=== PATIENT | male | born 1980 | race Caucasian/White ===

== ENCOUNTER 2019-03-04 21:06 | Inpatient (IN) | payer OTHER ==
[~2019-03-04] VITALS: Ht 167.6 cm; Wt 93.2 kg
[~2019-03-04 21:06] MED LIST: TRAM50TA2 PO
--- NOTE | 2019-03-04 22:17 | ERD ---
ER Documentation Chief Complaint Chief Complaint CHEST TIGHTNESS X'S 1 DAY HPI 38-year-old male presenting with epigastric pain that started today after eating spicy food and drinking beer. He states that he was sweating and had pressure- like pain in his epigastrium that was radiating to the back. The pain has been constant for several hours. He has had associated nonbloody vomiting. No diarrhea or constipation. No fevers, dysuria, hematuria. He denies any upper chest pain or shortness of breath. He has never experienced this before. ROS All systems reviewed and are negative except as per history of present illness. Medications Home Meds Discontinued Reported Medications Tramadol HCl (Tramadol HCl) 50 Mg Tab, 50 MG PO PRN PRN for PAIN, TAB 04/07/14 Allergies Allergies: Coded Allergies: hydrocodone (Unverified Allergy, Mild, ITCHING, 03/04/19) PMhx/Soc History of Surgery: Yes (anterior cervical discectomy & fusion) Anesthesia Reaction: No Hx Neurological Disorder: No Hx Respiratory Disorders: No Hx Cardiac Disorders: Yes (HTN not on meds) Hx Psychiatric Problems: No Hx Miscellaneous Medical Probl: No Hx Alcohol Use: Yes (6 packs of beer every night, 3 bottles of beer 03/04/2019) Hx Substance Use: Yes (marijuana last used 03/03/2019, cocaine) Hx Tobacco Use: No Smoking Status: Never smoker FmHx Family History: No diabetes, No coronary disease Physical Exam Vitals Vital Signs Date Temp Pulse Resp B/P (MAP) Pulse Ox O2 O2 Flow FiO2 Time Delivery Rate 03/04/19 86 19 141/91 99 Room Air 23:30 (108) 03/04/19 89 15 127/103 99 Room Air 23:00 (111) 03/04/19 96 14 126/83 97 Room Air 22:30 (97) 03/04/19 95 14 147/101 98 Room Air 22:00 (116) 03/04/19 97.2 106 18 166/94 98 21:10 (118) Physical Exam Const: No acute distress Head: Atraumatic Eyes: Normal Conjunctiva ENT: Normal External Ears, Nose and Mouth. Neck: Full range of motion. No meningismus. Resp: Clear to auscultation bilaterally Cardio: Regular rate and rhythm, no murmurs Abd: Soft, non tender, non distended. Normal bowel sounds : Tip of foreskin with erythema and inflammation, white clumpy discharge noted. Unable to retract foreskin Skin: No petechiae or rashes Back: No midline or flank tenderness Ext: No cyanosis, or edema Neur: Awake and alert Psych: Normal Mood and Affect Result Diagram: 03/04/19221303/04/192213 Results 24 hrs Laboratory Tests Test 03/04/19 22:14 03/04/19 22:15 03/04/19 23:44 03/04/19 23:58 White Blood 17.7 10^3/ul Count Red Blood Count 5.24 10^6/ul Hemoglobin 16.2 g/dl Hematocrit 45.3 % Mean Corpuscular 86.5 fl Volume Mean Corpuscular 30.9 pg Hemoglobin Mean Corpuscular 35.8 g/dl Hemoglobin Ines nt Red Cell 12.5 % Distribution Width Platelet Count 226 10^3/UL Mean Platelet 10.6 fl Volume Immature 0.500 % Granulocytes % Neutrophils % 83.6 % Lymphocytes % 9.6 % Monocytes % 5.9 % Eosinophils % 0.1 % Basophils % 0.3 % Nucleated Red 0.0 /100WBC Blood Cells % Immature 0.090 10^3/ul Granulocytes # Neutrophils # 14.8 10^3/ul Lymphocytes # 1.7 10^3/ul Monocytes # 1.1 10^3/ul Eosinophils # 0.0 10^3/ul Basophils # 0.1 10^3/ul Nucleated Red 0.0 10^3/ul Blood Cells # Sodium Level 136 mmol/L Potassium Level 3.8 mmol/L Chloride Level 96 mmol/L Carbon Dioxide 19 mmol/L Level Anion Gap 21 Blood Urea 11 mg/dl Nitrogen Creatinine 0.98 mg/dl Est Glomerular > 60 mL/min Filtrat Rate mL/min Glucose Level 385 mg/dl Calcium Level 9.8 mg/dl Troponin I < 0.012 ng/ml Total Bilirubin 0.9 mg/dl Direct Bilirubin 0.00 mg/dl Indirect 0.9 mg/dl Bilirubin Aspartate Amino 34 IU/L Transf (AST/SGOT ) Alanine 43 IU/L Aminotransferase (ALT/SGPT) Alkaline 167 IU/L Phosphatase Total Protein 8.1 g/dl Albumin 5.2 g/dl Lipase 148 U/L Bedside Urine pH 5.0 (LAB) Bedside Urine 1+ Protein (LAB) Bedside Urine 0.50% Glucose (UA) Bedside Urine 4+ Ketones (LAB) Bedside Urine 1+ Blood Bedside Urine Negative Nitrite (LAB) Bedside Urine Negative Leukocyte Estera se (L Blood Gas Blood venous Specimen Source Arterial Blood 03/05/2019 12:15: Date Drawn 38 AM Arterial Blood VENOUS LINE Gas Puncture Site [place] Test N/A Venous Blood pH 7.316 Venous Blood 40.1 mmHG pCO2 (Temp Corrected) Venous Blood pO2 30.6 mmHG (Temp Corrected) Venous Blood 20.0 mmol/L HCO3 Venous Blood 61.6 mmHG Oxygen Saturation Venous Blood -5.7 mmol/L Base Excess Venous Blood 16.2 g/dl Total Hemoglobin Venous Blood 61.0 % Oxyhemoglobin Venous Blood 0.2 % Methemoglobin Carboxyhemoglobi 0.7 % n Blood Gas 37.0 C Temperature Blood Gas ROOM AIR Modality FiO2 21.0 % Blood Gas MR Notified Whom Blood Gas 03/05/2019 12:22: Notified Time 09 AM Test 03/05/19 00:30 Bedside Glucose 274 mg/dL Current Medications Medications Dose Sig/Anil Start Time Status Last (Trade) Ordered Route PRN Stop Time Admin Dose Reason Admin Sodium 1,000 ml @ Q1H STAT 03/04/19 DC 03/04/19 Chloride 1,000 mls/hr IV 22:18 22:25 03/04/19 23:17 Morphine 4 mg ONCE STAT 03/04/19 DC 03/04/19 Sulfate IV 22:18 22:25 (morphine) 03/04/19 22:20 Ondansetron 4 mg ONCE STAT 03/04/19 DC 03/04/19 HCl (Zofran IV 22:18 22:25 Inj) 03/04/19 22:20 Lactated 1,000 ml @ Q1H STAT 03/04/19 DC 03/04/19 Ringer's 1,000 mls/hr IV 23:25 23:40 03/05/19 00:24 Sodium 1,000 ml @ Q8H IV 03/05/19 UNV Chloride 125 mls/hr 00:37 IV Flush 3 ml PER 03/05/19 UNV (NS 3 ml) PROTOCOL IV 01:00 Ondansetron 4 mg Q6H PRN 03/05/19 UNV HCl (Zofran IV 01:00 Inj) NAUSEA/VOMITI NG 650 mg Q6H PRN 03/05/19 UNV Acetaminophen PO .PAIN 1-3 01:00 (Tylenol OR TEMP Tab) 1 tab Q6H PRN 03/05/19 UNV Acetaminophen PO .PAIN 4-6 01:00 / Hydrocodone Bitart ([place] (5/325)) Morphine 2 mg Q4H PRN 03/05/19 UNV Sulfate IV .PAIN 01:00 (morphine) 7-10 Docusate 100 mg Q12H PRN 03/05/19 UNV Sodium PO 01:00 (Colace) .CONSTIPATION Bisacodyl 5 mg DAILY PRN 03/05/19 UNV (Dulcolax) PO 01:00 .CONSTIPATION Insulin 10 units ONCE ONCE 03/05/19 UNV Glargine SC 01:00 (Lantus) 03/05/19 01:01 Discontinue ONCE ONCE 03/05/19 UNV Miscellaneous current oral XX 01:00 sulfonylur... 03/05/19 01:01 Information (* Miscellaneous Pharmacy Order) Diagnostic 1 ea 02 XX 03/05/19 UNV Test (Pha) 02:00 (Accu-Chek) ONCE ONCE 03/05/19 UNV Miscellaneous HYPOGLYCEMIA XX 01:00 PROTOCOL 03/05/19 01:01 Information w... (* Miscellaneous Pharmacy Order) Insulin NOVOLOG Q4 SC 03/05/19 UNV Aspart *MILD* 01:00 (Novolog ALGORI... Insulin Pen) Discontinue ONCE ONCE 03/05/19 UNV Miscellaneous all previ... XX 01:00 03/05/19 01:01 Information (* Miscellaneous Pharmacy Order) Al 60 ml ONCE ONCE 03/05/19 UNV Hydrox/Mg PO 01:00 Hydrox/Simeth 03/05/19 01:01 icone (Mag-Al Plus) Procedures/MDM EMERGENT LABS AND DIAGNOSTIC STUDIES: Lab Results above were reviewed and interpreted by me. CBC: Leukocytosis, no evidence of anemia CMP: Evidence of mild acidosis with low CO2. Hyperglycemic with evidence of possible DKA. No evidence of clinically significant electrolyte abnormality, renal failure, liver disease, or biliary obstruction Lipase: no evidence of pancreatitis Troponin within normal limits, not indicative of cardiac ischemia VBG shows evidence of mild acidosis with pH 7.31 Urine dip shows 4+ ketones, consistent with ketosis 12-lead EKG was interpreted by Yesi Loya MD: Normal Sinus Rhythm with ventricular rate of 100 beats per minute Normal axis Normal intervals No acute ST or T wave changes suggestive of acute ischemia or STEMI. Radiology Results as interpreted by Radiology below were reviewed by Magali Loya MD: Chest x-ray: no acute abnormalities Ultrasound gallbladder shows no acute abnormalities in the right upper quadrant Initial Nursing notes reviewed. Previous Medical Records requested via the Electronic Health Record. EMERGENCY DEPARTMENT COURSE / MEDICAL DECISION MAKING: Patient is presenting with upper abdominal pain with nausea and vomiting. Vitals are notable for tachycardia. Work-up did not show any evidence of cholecystitis or pancreatitis. There is no evidence of pneumonia. He does have leukocytosis but I have a low suspicion for serious intra-abdominal infection. Labs are consistent with new onset diabetes with mild ketoacidosis. Patient treated with 2 L of IV fluids. I feel he is stable for telemetry and will require admission for stabilization. I spoke with the admitting physician, Dr. Escamilla, who has accepted the patient for admission to telemetry. Of note, the patient later told me that he was having pain around his penis for quite some time. After examination, it seems the patient has balanoposthitis. This will also require treatment while in the hospital. Critical Care Time: 45 minutes Treatments/Evaluations: Close monitoring and treatment of unstable vital signs, cardiorespiratory, and neurologic status, while maintaining tight balance of fluid, respiratory, and cardiac interventions. This time includes discussing the case with the patient and the patients family. This time does not include all procedures stated elsewhere in this record. This time also includes reviewing old records, labs and radiological studies. This time includes examining and re- examining the patient. Additionally, this time also includes arranging care with admitting and consulting physicians. Departure Diagnosis: Primary Impression: Diabetes mellitus, new onset Additional Impressions: DKA (diabetic ketoacidoses) Diabetes mellitus type: due to underlying condition Diabetes mellitus complication detail: without coma Qualified Codes: E08.10 - Diabetes mellitus due to underlying condition with ketoacidosis without coma Leukocytosis Leukocytosis type: unspecified Qualified Codes: D72.829 - Elevated white blood cell count, unspecified Upper abdominal pain Balanoposthitis Condition: Serious MARY LOYA MD Mar 04, 2019 22:17
[2019-03-04] MEDS ORDERED: morphine 4 MG/ML VIAL IV STA (22:18)
[2019-03-04] MEDS ORDERED: SOD CHLORIDE 0.9% 1,000 ML IV STA (22:18)
[2019-03-04] MEDS ORDERED: ONDANSETRON 4 MG INJ IV STA (22:18)
[2019-03-04] MEDS ORDERED: LACTATED RINGER'S 1,000 ML IV STA (23:25)
[2019-03-05] MEDS ORDERED: AL HYDROX/MG HYDROX/SIMETH 30 ML CUP PO ONE (01:00)
[2019-03-05] MEDS ORDERED: HYDROCODONE/APAP (5/325) TAB PO PRN (01:00)
[2019-03-05] MEDS ORDERED: NACL 0.9% 3 ML SYG IV SCH (01:00)
[2019-03-05] MEDS ORDERED: BISACODYL (EC) 5 MG TAB PO PRN (01:00)
[2019-03-05] MEDS ORDERED: ONDANSETRON 4 MG INJ IV PRN (01:00)
[2019-03-05] MEDS ORDERED: morphine 2 MG INJ IV PRN (01:00)
[2019-03-05] MEDS ORDERED: ACETAMINOPHEN 325 MG TAB PO PRN (01:00)
[2019-03-05] MEDS ORDERED: INSULIN GLARGINE [LANTus] (100 UNITS/ML) SYG SC ONE (01:00)
[2019-03-05] MEDS ORDERED: GLUCOSE GEL 15 GRAM TUBE BUCCAL PRN (02:00)
[2019-03-05] MEDS ORDERED: GLUCOSE GEL 15 GRAM TUBE PO PRN ×2 (02:00)
[2019-03-05] MEDS ORDERED: DEXTROSE 50% 50 ML SYRINGE IV PRN ×2 (02:00)
[2019-03-05] MEDS ORDERED: GLUCAGON 1 MG INJ IM PRN (02:00)
[2019-03-05] MEDS: INSULIN ASPART [NOVOLOG] 3 ML PEN SC SCH ×4 (03:09→13:00)
[2019-03-05] MEDS ORDERED: ONDANSETRON 4 MG INJ IV STA (03:20)
[2019-03-05] MEDS ORDERED: LORAZEPAM 2 MG INJ IV ONE (03:30)
[2019-03-05] MEDS: FAMOTIDINE 20 MG INJ IV SCH ×3 (05:23→20:02)
[2019-03-05] MEDS ORDERED: AL HYDROX/MG HYDROX/SIMETH 30 ML CUP PO PRN (06:30)
[2019-03-05] MEDS: ACCU-CHEK XX SCH (07:33)
[2019-03-05] MEDS: SOD CHLORIDE 0.9% 1,000 ML IV SCH ×4 (07:34→21:22)
[2019-03-05] MEDS ORDERED: POTASSIUM CHLORIDE (SR) 20 MEQ TAB PO STA (07:44)
[2019-03-05] MEDS ORDERED: MULTIVITAMINS 10 ML, THIAMINE 100 MG, FOLIC ACID 1 MG in SOD CHLORIDE 0.9% 1,000 ML IVPB SCH (09:00)
--- NOTE | 2019-03-05 13:13 | CONS ---
Assessment/Plan Assessment/Plan Hospital Course (Demo Recall) Summary Assessment and Plan: Assessment: Epigastric pain/N/v- with questionable hematemesis -2/2 to DKA vs gastritis vs PUD vs Rosa-Rayo vs other Newly diagnosed DM DKA HTN- not treated Dyslipidemia- not treated hepatic steatosis Excessive alcohol use-crystal importance of cessation History of recent cocaine use Plan: NPO EGD today Endoscopy - risks/benefits/alternatives/indications of procedure and sedation/anesthesia discussed with patient who states understanding and gives informed consent to proceed. Monitor labs Continue H2 BID Continue medical management of underlying DKA Patient seen in collaboration with Dr. Sheehan CC: GEM SHEEHAN MD ; Consultation Date/Type/Reason Admit Date/Time Date of Consultation: Mar 05, 2019 Type of Consult GI Reason for Consultation Epigastric pain N/V- questionable hematemesis Date/Time of Note DATE: 03/05/19 TIME: 13:01 Hx of Present Illness This a 38-year-old male with known past medical history of hypertension, dyslipidemia both untreated, gastritis, history of upper GI bleed in 2000 who presented to the hospital after complaints of facial numbness associated with epigastric pain nausea and vomiting. Patient states yesterday after working he had ate spicy food with a beer, shortly after started to develop blurry vision with facial numbness subsequently nausea and dark emesis. Patient took a shower which did not help and proceeded to complain of persistent nausea and vomiting time noting what appeared to be possibly blood, He attempted to take omeprazole which did relieve some of his symptoms, he also took medication from whole [employer] which cause increased nausea and vomiting. He came to the ED for further evaluation. Here work-up was completed patient noted to have an elevated glucose. Urinalysis was positive for protein blood and ketones hemoglobin A1c was obtained with results to be 9.7 patient was not aware he was diabetic additionally patient with elevated CK. At time evaluation patient states he is feeling better no episodes of diarrhea, melena, hematochezia or constipation. Socially patient says he now only drinks 6 beers per day he notes he used to drink more than this, he smokes marijuana on a daily basis and history of recent cocaine use. Crystal plan to see with EGD today I reviewed risk/benefits of both procedure and sedation patient verbalized understanding is agreeable. Review of Systems: A 12 system, review was conducted and is negative except as noted in the HPI or here. Past Medical History Home Meds Discontinued Reported Medications Tramadol HCl (Tramadol HCl) 50 Mg Tab, 50 MG PO PRN PRN for PAIN, TAB 04/07/14 Medications Current Medications Sodium Chloride 1,000 ml @ 125 mls/hr Q8H IV Last administered on 03/05/19at 07:34; Admin Dose 125 MLS/HR; Start 03/05/19 at 00:37 IV Flush (NS 3 ml) 3 ml PER PROTOCOL IV ; Start 03/05/19 at 01:00 Ondansetron HCl (Zofran Inj) 4 mg Q6H PRN IV NAUSEA/VOMITING; Start 03/05/19 at 01:00 Acetaminophen (Tylenol Tab) 650 mg Q6H PRN PO .PAIN 1-3 OR TEMP; Start 03/05/19 at 01:00 Morphine Sulfate (morphine) 2 mg Q4H PRN IV .PAIN 7-10; Start 03/05/19 at 01:00 Docusate Sodium (Colace) 100 mg Q12H PRN PO .CONSTIPATION; Start 03/05/19 at 01:00 Bisacodyl (Dulcolax) 5 mg DAILY PRN PO .CONSTIPATION; Start 03/05/19 at 01:00 Diagnostic Test (Pha) (Accu-Chek) 1 ea 02 XX ; Start 03/05/19 at 02:00 Insulin Aspart (Novolog Insulin Pen) NOVOLOG *MILD* ALGORI... Q4 SC Last administered on 03/05/19at 10:21; Admin Dose 3 UNIT; Start 03/05/19 at 01:00 Miscellaneous Information 1 ea NOTE XX ; Start 03/05/19 at 02:00 Glucose (Glutose) 15 gm Q15M PRN PO DECREASED GLUCOSE; Start 03/05/19 at 02:00 Glucose (Glutose) 22.5 gm Q15M PRN PO DECREASED GLUCOSE; Start 03/05/19 at 02:00 Dextrose (D50w Syringe) 25 ml Q15M PRN IV DECREASED GLUCOSE; Start 03/05/19 at 02:00 Dextrose (D50w Syringe) 50 ml Q15M PRN IV DECREASED GLUCOSE; Start 03/05/19 at 02:00 Glucagon (Glucagen) 1 mg Q15M PRN IM DECREASED GLUCOSE; Start 03/05/19 at 02:00 Glucose (Glutose) 15 gm Q15M PRN BUCCAL DECREASED GLUCOSE; Start 03/05/19 at 02:00 Famotidine (Pepcid Iv) 20 mg BID IV Last administered on 03/05/19at 10:11; Admin Dose 20 MG; Start 03/05/19 at 04:30 Al Hydrox/Mg Hydrox/Simethicone (Mag-Al Plus) 30 ml Q4H PRN PO GASTROINTESTINAL UPSET; Start 03/05/19 at 06:30 Multivitamins 10 ml/Thiamine HCl 100 mg/Folic Acid 1 mg/Sodium Chloride 1,011.2 ml @ 125 mls/ hr DAILY@09 IVPB Last administered on 03/05/19at 10:11; Admin Dose 125 MLS/HR; Start 03/05/19 at 09:00; Stop 03/05/19 at 17:06 Allergies: Coded Allergies: hydrocodone (Unverified Allergy, Mild, ITCHING, 03/04/19) Social History Smoking Status: Never smoker Exam/Review of Systems Exam Vitals Vital Signs Date Temp Pulse Resp B/P (MAP) Pulse Ox O2 O2 Flow FiO2 Time Delivery Rate 03/05/19 98.2 80 16 141/85 98 Room Air 10:30 (103) 80 Exam PHYSICAL EXAMINATION: GENERAL: Alert & oriented x 3, in no acute distress SKIN: No lesions. HEAD: Normocephalic, atraumatic, no tenderness. EYES: Pupils equal reactive to light, non-icteric, no discharge. EARS/NOSE AND THROAT: Ears normal, nose normal. NECK: Supple, no masses. CHEST: Inspection within normal limits. CARDIOVASCULAR: Heart: Regular rate and rhythm RESPIRATORY: Lungs clear to auscultation GASTROINTESTINAL AND LIVER: Abdomen: Soft, epigastric tenderness, non-distended, no ascites, no guarding, no rebound tenderness, normoactive bowel sounds. Re ctal: Deferred. GENITOURINARY: Male genitalia within normal limits. EXTREMITIES: No cyanosis, clubbing or edema. Results Result Diagram: 03/05/19 0522 03/05/19 0929 Results 24hrs Laboratory Tests Test 03/04/19 22:14 03/04/19 22:15 03/04/19 23:44 03/04/19 23:58 White Blood Count 17.7 #H Red Blood Count 5.24 Hemoglobin 16.2 Hematocrit 45.3 Mean Corpuscular 86.5 Volume Mean Corpuscular 30.9 Hemoglobin Mean Corpuscular 35.8 Hemoglobin Concen t Red Cell 12.5 Distribution Width Platelet Count 226 Mean Platelet 10.6 #H Volume Immature 0.500 H Granulocytes % Neutrophils % 83.6 H Lymphocytes % 9.6 L Monocytes % 5.9 Eosinophils % 0.1 Basophils % 0.3 Nucleated Red 0.0 Blood Cells % Immature 0.090 H Granulocytes # Neutrophils # 14.8 H Lymphocytes # 1.7 Monocytes # 1.1 H Eosinophils # 0.0 Basophils # 0.1 Nucleated Red 0.0 Blood Cells # Sodium Level 136 Potassium Level 3.8 Chloride Level 96 L Carbon Dioxide 19 L Level Anion Gap 21 H Blood Urea 11 Nitrogen Creatinine 0.98 Est Glomerular > 60 Filtrat Rate mL/min Glucose Level 385 H Calcium Level 9.8 Troponin I < 0.012 Total Bilirubin 0.9 Direct Bilirubin 0.00 Indirect 0.9 Bilirubin Aspartate Amino 34 Transf (AST/SGOT) Alanine 43 Aminotransferase (ALT/SGPT) Alkaline 167 H Phosphatase Total Protein 8.1 Albumin 5.2 H Lipase 148 Ethyl Alcohol < 10.0 H Level Bedside Urine pH 5.0 (LAB) Bedside Urine 1+ H Protein (LAB) Bedside Urine 0.50% H Glucose (UA) Bedside Urine 4+ H Ketones (LAB) Bedside Urine 1+ H Blood Bedside Urine Negative Nitrite (LAB) Bedside Urine Negative Leukocyte Esteras e (L Blood Gas Blood venous Specimen Source Arterial Blood 03/05/2019 12:15: Date Drawn 38 AM Arterial Blood VENOUS LINE Gas Puncture Site [place] Test N/A Venous Blood pH 7.316 L Venous Blood pCO2 40.1 (Temp Corrected) Venous Blood pO2 30.6 H (Temp Corrected) Venous Blood HCO3 20.0 L Venous Blood 61.6 Oxygen Saturation Venous Blood Base -5.7 L Excess Venous Blood 16.2 Total Hemoglobin Venous Blood 61.0 Oxyhemoglobin Venous Blood 0.2 Methemoglobin Carboxyhemoglobin 0.7 Blood Gas 37.0 Temperature Blood Gas ROOM AIR Modality FiO2 21.0 Blood Gas MR Notified Whom Blood Gas 03/05/2019 12:22: Notified Time 09 AM Test 03/05/19 00:30 03/05/19 03:02 03/05/19 04:14 03/05/19 05:22 Bedside Glucose 274 H 232 H 248 H White Blood Count 13.4 #H Red Blood Count 4.69 L Hemoglobin 14.7 Hematocrit 40.4 L Mean Corpuscular 86.1 Volume Mean Corpuscular 31.3 Hemoglobin Mean Corpuscular 36.4 Hemoglobin Concen t Red Cell 12.7 Distribution Width Platelet Count 201 Mean Platelet 10.7 H Volume Immature 0.500 H Granulocytes % Neutrophils % 73.4 Lymphocytes % 17.8 Monocytes % 7.5 Eosinophils % 0.3 Basophils % 0.5 Nucleated Red 0.0 Blood Cells % Immature 0.070 H Granulocytes # Neutrophils # 9.8 H Lymphocytes # 2.4 Monocytes # 1.0 H Eosinophils # 0.0 Basophils # 0.1 Nucleated Red 0.0 Blood Cells # Test 03/05/19 05:23 03/05/19 05:25 03/05/19 09:29 03/05/19 10:18 Sodium Level 141 139 Potassium Level 3.3 L 3.7 Chloride Level 103 104 Carbon Dioxide 23 24 Level Anion Gap 15 H 11 Blood Urea 8 7 Nitrogen Creatinine 0.75 0.68 Est Glomerular > 60 > 60 Filtrat Rate mL/min Glucose Level 226 #H 216 Hemoglobin A1c 9.7 H Calcium Level 8.7 8.5 Magnesium Level 2.3 Total Bilirubin 1.0 Direct Bilirubin 0.00 Indirect 1.0 Bilirubin Aspartate Amino 33 Transf (AST/SGOT) Alanine 35 Aminotransferase (ALT/SGPT) Alkaline 121 Phosphatase Creatine Kinase 330 H 272 H Creatine Kinase 0.5 0.5 Index Creatinine Kinase 1.60 1.32 MB (Mass) Troponin I < 0.012 < 0.012 Total Protein 6.8 # Albumin 4.1 # Globulin 2.70 Albumin/Globulin 1.51 Ratio Triglycerides 659 H Level Cholesterol Level 281 H LDL Cholesterol, 115 Calculated HDL Cholesterol 34 Cholesterol/HDL 8.2 Ratio Thyroid 1.930 Stimulating Hormone (TSH) Bedside Glucose 234 H 223 H Test 03/05/19 12:15 Sodium Level 140 Potassium Level 3.7 Chloride Level 105 Carbon Dioxide 24 Level Anion Gap 11 Blood Urea 6 L Nitrogen Creatinine 0.69 Est Glomerular > 60 Filtrat Rate mL/min Glucose Level 186 Calcium Level 8.7 Medications Medication Current Medications Sodium Chloride 1,000 ml @ 125 mls/hr Q8H IV Last administered on 03/05/19at 07:34; Admin Dose 125 MLS/HR; Start 6/26/19 at 00:37 IV Flush (NS 3 ml) 3 ml PER PROTOCOL IV ; Start 03/05/19 at 01:00 Ondansetron HCl (Zofran Inj) 4 mg Q6H PRN IV NAUSEA/VOMITING; Start 03/05/19 at 01:00 Acetaminophen (Tylenol Tab) 650 mg Q6H PRN PO .PAIN 1-3 OR TEMP; Start 03/05/19 at 01:00 Morphine Sulfate (morphine) 2 mg Q4H PRN IV .PAIN 7-10; Start 03/05/19 at 01:00 Docusate Sodium (Colace) 100 mg Q12H PRN PO .CONSTIPATION; Start 03/05/19 at 01:00 Bisacodyl (Dulcolax) 5 mg DAILY PRN PO .CONSTIPATION; Start 03/05/19 at 01:00 Diagnostic Test (Pha) (Accu-Chek) 1 ea 02 XX ; Start 03/05/19 at 02:00 Insulin Aspart (Novolog Insulin Pen) NOVOLOG *MILD* ALGORI... Q4 SC Last administered on 03/05/19at 10:21; Admin Dose 3 UNIT; Start 03/05/19 at 01:00 Miscellaneous Information 1 ea NOTE XX ; Start 03/05/19 at 02:00 Glucose (Glutose) 15 gm Q15M PRN PO DECREASED GLUCOSE; Start 03/05/19 at 02:00 Glucose (Glutose) 22.5 gm Q15M PRN PO DECREASED GLUCOSE; Start 03/05/19 at 02:00 Dextrose (D50w Syringe) 25 ml Q15M PRN IV DECREASED GLUCOSE; Start 03/05/19 at 02:00 Dextrose (D50w Syringe) 50 ml Q15M PRN IV DECREASED GLUCOSE; Start 03/05/19 at 02:00 Glucagon (Glucagen) 1 mg Q15M PRN IM DECREASED GLUCOSE; Start 03/05/19 at 02:00 Glucose (Glutose) 15 gm Q15M PRN BUCCAL DECREASED GLUCOSE; Start 03/05/19 at 02:00 Famotidine (Pepcid Iv) 20 mg BID IV Last administered on 03/05/19at 10:11; Admin Dose 20 MG; Start 03/05/19 at 04:30 Al Hydrox/Mg Hydrox/Simethicone (Mag-Al Plus) 30 ml Q4H PRN PO GASTROINTESTINAL UPSET; Start 03/05/19 at 06:30 Multivitamins 10 ml/Thiamine HCl 100 mg/Folic Acid 1 mg/Sodium Chloride 1,011.2 ml @ 125 mls/ hr DAILY@09 IVPB Last administered on 03/05/19at 10:11; Admin Dose 125 MLS/HR; Start 03/05/19 at 09:00; Stop 03/05/19 at 17:06 SHARLA MARY Mar 05, 2019 13:13
--- NOTE | 2019-03-05 17:32 | PREAC ---
Date/Time of Note Date/Time of Note DATE: 03/05/19 TIME: 17:31 Anesthesia Eval and Record Evaluation Time Pre-Procedure Interview DATE: 03/05/19 TIME: 17:31 Age 38 Sex male NPO: 8 hrs Preoperative diagnosis epigastric pain bleeding Planned procedure egd Past Medical History Past Medical History: Includes Cardio: HTN, Dyslipidemia Endo: Diabetes Recreational drugs: Marijuana Surgery & Anesthesia Issues No known issue Meds Anticoagulation: No Beta Kwaku within 24 hr: No Reason Beta Kwaku not given: Pt. not on B-Kwaku Discontinued Reported Medications Tramadol HCl (Tramadol HCl) 50 Mg Tab, 50 MG PO PRN PRN for PAIN, TAB 04/07/14 Current Medications Sodium Chloride 1,000 ml @ 125 mls/hr Q8H IV Last administered on 03/05/19at 07:34; Admin Dose 125 MLS/HR; Start 03/05/19 at 00:37 IV Flush (NS 3 ml) 3 ml PER PROTOCOL IV ; Start 03/05/19 at 01:00 Ondansetron HCl (Zofran Inj) 4 mg Q6H PRN IV NAUSEA/VOMITING; Start 03/05/19 at 01:00 Acetaminophen (Tylenol Tab) 650 mg Q6H PRN PO .PAIN 1-3 OR TEMP; Start 03/05/19 at 01:00 Morphine Sulfate (morphine) 2 mg Q4H PRN IV .PAIN 7-10; Start 03/05/19 at 01:00 Docusate Sodium (Colace) 100 mg Q12H PRN PO .CONSTIPATION; Start 03/05/19 at 01:00 Bisacodyl (Dulcolax) 5 mg DAILY PRN PO .CONSTIPATION; Start 03/05/19 at 01:00 Diagnostic Test (Pha) (Accu-Chek) 1 ea 02 XX ; Start 03/05/19 at 02:00 Insulin Aspart (Novolog Insulin Pen) NOVOLOG *MILD* ALGORI... Q4 SC Last administered on 03/05/19at 10:21; Admin Dose 3 UNIT; Start 03/05/19 at 01:00 Miscellaneous Information 1 ea NOTE XX ; Start 03/05/19 at 02:00 Glucose (Glutose) 15 gm Q15M PRN PO DECREASED GLUCOSE; Start 03/05/19 at 02:00 Glucose (Glutose) 22.5 gm Q15M PRN PO DECREASED GLUCOSE; Start 03/05/19 at 02:00 Dextrose (D50w Syringe) 25 ml Q15M PRN IV DECREASED GLUCOSE; Start 03/05/19 at 02:00 Dextrose (D50w Syringe) 50 ml Q15M PRN IV DECREASED GLUCOSE; Start 03/05/19 at 02:00 Glucagon (Glucagen) 1 mg Q15M PRN IM DECREASED GLUCOSE; Start 03/05/19 at 02:00 Glucose (Glutose) 15 gm Q15M PRN BUCCAL DECREASED GLUCOSE; Start 03/05/19 at 02:00 Famotidine (Pepcid Iv) 20 mg BID IV Last administered on 03/05/19at 10:11; Admin Dose 20 MG; Start 03/05/19 at 04:30 Al Hydrox/Mg Hydrox/Simethicone (Mag-Al Plus) 30 ml Q4H PRN PO GASTROINTESTINAL UPSET; Start 03/05/19 at 06:30 Meds reviewed: Yes Allergies Coded Allergies: hydrocodone (Unverified Allergy, Mild, ITCHING, 03/04/19) Allergies Reviewed: Yes Labs/Studies Labs Reviewed: Reviewed by anesthesiologist Result Diagram: 03/05/19 0522 03/05/19 1215 Laboratory Tests 03/05/19 05:22 03/05/19 12:15 test: N/A Pre-procedure Exam Last vitals Vital Signs Date Temp Pulse Resp B/P (MAP) Pulse Ox O2 O2 Flow FiO2 Time Delivery Rate 03/05/19 98.3 81 16 135/96 98 Nasal 2.0 15:30 (109) Cannula 81 Airway: Adequate mouth opening, Adequate thyromental dist Mallampati: Mallampati III Teeth: Normal Lung: Normal Heart: Normal ASA Physical Status ASA physical status: 2 Emergency: None Pre-operative Attestations Prior to commencing anesthesia and surgery, the patient was re-evaluated, there was verification of: *The patient's identity *The results of appropriate recent lab work and preoperative vital signs *The above evaluation not changing prior to induction *Anesthetic plan, risk benefits, alternative and complications discussed with patient/family; questions answered; patient/family understands, accepts and wishes to proceed. SATHYA COONEY DO Mar 05, 2019 17:32
--- NOTE | 2019-03-05 18:00 | PAC ---
Date/Time of Note Date/Time of Note DATE: 03/05/19 TIME: 17:59 Post-Anesthesia Notes Post-Anesthesia Note Last documented vital signs Vital Signs Date Temp Pulse Resp B/P (MAP) Pulse Ox O2 O2 Flow FiO2 Time Delivery Rate 98 85 19 130/65 98 Nasal 2.0 0 Cannula 81 Activity: WNL Respiratory function: WNL Cardiovascular function: WNL Mental status: Baseline Pain reasonably controlled: Yes Hydration appropriate: Yes Nausea/Vomiting absent: Yes SATHYA COONEY DO Mar 05, 2019 18:00
[2019-03-05] MEDS: METOCLOPRAMIDE 10 MG INJ IV SCH ×2 (18:49→23:37)
[2019-03-05 19:56] VITALS: BP 137/89; PULSE 82; RESP 18
[2019-03-05] MEDS: PANTOPRAZOLE 40 MG INJ IV SCH (20:02)
[2019-03-05] MEDS: Insulin NOVOLOG SS MILD Algorithm (SS with meals and bedtime) SC SCH (20:03)
[2019-03-05] MEDS ORDERED: INSULIN ASPART [NOVOLOG] 3 ML PEN SC SCH (21:00)
[2019-03-05] MEDS: DOCUSATE SODIUM 100 MG CAP PO PRN (21:21)
[2019-03-05 21:40] VITALS: Ht 167.6 cm; Wt 93.2 kg
[2019-03-05 23:26] VITALS: BP 117/73; PULSE 65; RESP 18
[2019-03-06] MEDS: ACCU-CHEK XX SCH (01:09)
[2019-03-06 04:00] VITALS: BP 119/75; PULSE 73; RESP 18
[2019-03-06] MEDS: METOCLOPRAMIDE 10 MG INJ IV SCH ×4 (05:53→23:59)
[2019-03-06] MEDS: SOD CHLORIDE 0.9% 1,000 ML IV SCH (05:55)
[2019-03-06 07:43] VITALS: BP 137/78; PULSE 76; RESP 16
[2019-03-06] MEDS: FAMOTIDINE 20 MG INJ IV SCH (08:31)
[2019-03-06] MEDS: PANTOPRAZOLE 40 MG INJ IV SCH ×2 (08:33→20:09)
[2019-03-06] MEDS: Insulin NOVOLOG SS MILD Algorithm (SS with meals and bedtime) SC SCH ×4 (10:07→20:57)
--- NOTE | 2019-03-06 10:51 | PN ---
Date/Time of Note Date/Time of Note DATE: 03/06/19 TIME: 10:46 Assessment/Plan VTE Prophylaxis Risk score (from Nsg)>0 risk: 2 SCD applied (from Nsg): Yes Pharmacological prophylaxis: other (scds) Lines/Catheters IV Catheter Type (from Nrsg): Peripheral IV Assessment/Plan Hospital Course Summary Assessment and Plan: Assessment: Epigastric pain/N/v- with questionable hematemesis -2/2 to DKA vs gastritis vs PUD vs Rosa-Rayo vs other EGD 03/05/19 Severe ulcerative esophagitis. Small hiatal hernia. Moderate gastritis. Linear duodenal ulcerations with no stigmata. Otherwise normal EGD Newly diagnosed DM DKA HTN- not treated Dyslipidemia- not treated Hepatic steatosis Excessive alcohol use-discussed importance of cessation History of recent cocaine use Plan: PPI BID Await pathology Diet as tolerated Pt to f/u with GI after d/c- pt stable for out-pt management from GI point of view D/c planning per hospitalist Patient seen in collaboration with Dr. Sheehan Subjective: Course reviewed with nursing staff Patient interviewed and examined All labs, imaging and other results reviewed The patient states he feels much better today Tolerating diet well, no c/o n/v at this time Discussed results of EGD- patient verbalized understanding PHYSICAL EXAMINATION: GENERAL: Alert & oriented x 3, in no acute distress SKIN: No lesions. HEAD: Normocephalic, atraumatic, no tenderness. EYES: Pupils equal reactive to light, non-icteric, no discharge. EARS/NOSE AND THROAT: Ears normal, nose normal. NECK: Supple, no masses. CHEST: Inspection within normal limits. CARDIOVASCULAR: Heart: Regular rate and rhythm RESPIRATORY: Lungs clear to auscultation GASTROINTESTINAL AND LIVER: Abdomen: Soft, epigastric tenderness, non-distended, no ascites, no guarding, no rebound tenderness, normoactive bowel sounds. Rectal: Deferred. GENITOURINARY: Male genitalia within normal limits. EXTREMITIES: No cyanosis, clubbing or edema. Result Diagram: 03/06/19 0521 03/06/19 0521 Results 24hrs Laboratory Tests Test 03/05/19 12:15 03/05/19 16:36 03/05/19 18:34 03/05/19 18:48 Sodium Level 140 139 Potassium Level 3.7 3.7 Chloride Level 105 107 Carbon Dioxide Level 24 20 L Anion Gap 11 12 Blood Urea Nitrogen 6 L 5 L Creatinine 0.69 0.68 Est Glomerular > 60 > 60 Filtrat Rate mL/min Glucose Level 186 189 Calcium Level 8.7 8.4 Bedside Glucose 176 185 Test 03/05/19 19:46 03/05/19 22:00 03/06/19 05:21 03/06/19 08:28 Bedside Glucose 166 189 Urine Opiates Screen Negative Urine Barbiturates Negative Urine Amphetamines Negative Screen Urine Negative Benzodiazepines Screen Urine Cocaine Screen Positive Urine Cannabinoids Positive White Blood Count 8.8 # Red Blood Count 4.35 L Hemoglobin 13.7 L Hematocrit 39.6 L Mean Corpuscular 91.0 Volume Mean Corpuscular 31.5 Hemoglobin Mean Corpuscular 34.6 Hemoglobin Concent Red Cell 13.2 Distribution Width Platelet Count 189 Mean Platelet Volume 10.9 H Immature 0.500 H Granulocytes % Neutrophils % 71.3 Lymphocytes % 18.8 Monocytes % 8.2 Eosinophils % 0.6 Basophils % 0.6 Nucleated Red Blood 0.0 Cells % Immature 0.040 H Granulocytes # Neutrophils # 6.3 Lymphocytes # 1.7 Monocytes # 0.7 Eosinophils # 0.1 Basophils # 0.1 Nucleated Red Blood 0.0 Cells # Sodium Level 143 Potassium Level 3.7 Chloride Level 108 Carbon Dioxide Level 21 Anion Gap 14 H Blood Urea Nitrogen 6 L Creatinine 0.71 Est Glomerular > 60 Filtrat Rate mL/min Glucose Level 199 Calcium Level 8.8 Total Bilirubin 0.9 Direct Bilirubin 0.00 Indirect Bilirubin 0.9 Aspartate Amino 25 Transf (AST/SGOT) Alanine 36 Aminotransferase (AL T/SGPT) Alkaline Phosphatase 105 Total Protein 6.3 Albumin 3.6 Globulin 2.70 Albumin/Globulin 1.33 Ratio Test 03/06/19 09:57 Bedside Glucose 272 H Exam/Review of Systems Exam Vitals Vital Signs Date Temp Pulse Resp B/P (MAP) Pulse Ox O2 O2 Flow FiO2 Time Delivery Rate 03/06/19 98.7 76 16 137/78 95 07:43 (97) 03/06/19 Room Air 04:00 03/05/19 2.0 15:30 Intake and Output 03/05/19 03/05/19 03/06/19 1515:00 23:00 07:00 IntakeIntake Total 1000 ml 1800 ml BalanceBalance 1000 ml 1800 ml Results Results 24hrs Laboratory Tests Test 03/05/19 12:15 03/05/19 16:36 03/05/19 18:34 03/05/19 18:48 Sodium Level 140 139 Potassium Level 3.7 3.7 Chloride Level 105 107 Carbon Dioxide Level 24 20 L Anion Gap 11 12 Blood Urea Nitrogen 6 L 5 L Creatinine 0.69 0.68 Est Glomerular > 60 > 60 Filtrat Rate mL/min Glucose Level 186 189 Calcium Level 8.7 8.4 Bedside Glucose 176 185 Test 03/05/19 19:46 03/05/19 22:00 03/06/19 05:21 03/06/19 08:28 Bedside Glucose 166 189 Urine Opiates Screen Negative Urine Barbiturates Negative Urine Amphetamines Negative Screen Urine Negative Benzodiazepines Screen Urine Cocaine Screen Positive Urine Cannabinoids Positive White Blood Count 8.8 # Red Blood Count 4.35 L Hemoglobin 13.7 L Hematocrit 39.6 L Mean Corpuscular 91.0 Volume Mean Corpuscular 31.5 Hemoglobin Mean Corpuscular 34.6 Hemoglobin Concent Red Cell 13.2 Distribution Width Platelet Count 189 Mean Platelet Volume 10.9 H Immature 0.500 H Granulocytes % Neutrophils % 71.3 Lymphocytes % 18.8 Monocytes % 8.2 Eosinophils % 0.6 Basophils % 0.6 Nucleated Red Blood 0.0 Cells % Immature 0.040 H Granulocytes # Neutrophils # 6.3 Lymphocytes # 1.7 Monocytes # 0.7 Eosinophils # 0.1 Basophils # 0.1 Nucleated Red Blood 0.0 Cells # Sodium Level 143 Potassium Level 3.7 Chloride Level 108 Carbon Dioxide Level 21 Anion Gap 14 H Blood Urea Nitrogen 6 L Creatinine 0.71 Est Glomerular > 60 Filtrat Rate mL/min Glucose Level 199 Calcium Level 8.8 Total Bilirubin 0.9 Direct Bilirubin 0.00 Indirect Bilirubin 0.9 Aspartate Amino 25 Transf (AST/SGOT) Alanine 36 Aminotransferase (AL T/SGPT) Alkaline Phosphatase 105 Total Protein 6.3 Albumin 3.6 Globulin 2.70 Albumin/Globulin 1.33 Ratio Test 03/06/19 09:57 Bedside Glucose 272 H Medications Medication Current Medications IV Flush (NS 3 ml) 3 ml PER PROTOCOL IV ; Start 03/05/19 at 01:00 Ondansetron HCl (Zofran Inj) 4 mg Q6H PRN IV NAUSEA/VOMITING; Start 03/05/19 at 01:00 Acetaminophen (Tylenol Tab) 650 mg Q6H PRN PO .PAIN 1-3 OR TEMP; Start 03/05/19 at 01:00 Morphine Sulfate (morphine) 2 mg Q4H PRN IV .PAIN 7-10; Start 03/05/19 at 01:00 Docusate Sodium (Colace) 100 mg Q12H PRN PO .CONSTIPATION Last administered on 03/05/19at 21:21; Admin Dose 100 MG; Start 03/05/19 at 01:00 Bisacodyl (Dulcolax) 5 mg DAILY PRN PO .CONSTIPATION; Start 03/05/19 at 01:00 Miscellaneous Information 1 ea NOTE XX ; Start 03/05/19 at 02:00 Glucose (Glutose) 15 gm Q15M PRN PO DECREASED GLUCOSE; Start 03/05/19 at 02:00 Glucose (Glutose) 22.5 gm Q15M PRN PO DECREASED GLUCOSE; Start 03/05/19 at 02:00 Dextrose (D50w Syringe) 25 ml Q15M PRN IV DECREASED GLUCOSE; Start 03/05/19 at 02:00 Dextrose (D50w Syringe) 50 ml Q15M PRN IV DECREASED GLUCOSE; Start 03/05/19 at 02:00 Glucagon (Glucagen) 1 mg Q15M PRN IM DECREASED GLUCOSE; Start 03/05/19 at 02:00 Glucose (Glutose) 15 gm Q15M PRN BUCCAL DECREASED GLUCOSE; Start 03/05/19 at 02:00 Famotidine (Pepcid Iv) 20 mg BID IV Last administered on 03/06/19at 08:31; Admin Dose 20 MG; Start 03/05/19 at 04:30 Al Hydrox/Mg Hydrox/Simethicone (Mag-Al Plus) 30 ml Q4H PRN PO GASTROINTESTINAL UPSET; Start 03/05/19 at 06:30 Pantoprazole (Protonix Iv) 40 mg BID IV Last administered on 03/06/19at 08:33; Admin Dose 40 MG; Start 03/05/19 at 21:00 Metoclopramide HCl (Reglan) 10 mg Q6 IV Last administered on 03/06/19at 05:53; Admin Dose 10 MG; Start 03/05/19 at 18:00 Insulin Aspart (Novolog Insulin Pen) (Adult SC Insulin - Mild Algorithm)... AC MEALS AND BEDTIME SC Last administered on 03/06/19at 10:07; Admin Dose 4 UNIT; Start 03/05/19 at 21:00 Insulin Glargine (Lantus) 14 units DAILY@0800 SC ; Start 03/06/19 at 11:30 Insulin Aspart (Novolog Insulin Pen) 5 unit WITH MEALS SC ; Start 03/06/19 at 11:50 SHARLA MARY Mar 06, 2019 10:51
[2019-03-06 11:21] VITALS: BP 141/94; PULSE 72; RESP 16
[2019-03-06] MEDS: SUCRALFATE (100 MG/ML) 10ML CUP PO SCH ×3 (12:07→20:09)
[2019-03-06] MEDS: INSULIN GLARGINE [LANTus] (100 UNITS/ML) SYG SC SCH (12:22)
[2019-03-06] MEDS: INSULIN ASPART [NOVOLOG] 3 ML PEN SC SCH ×2 (12:22→17:30)
--- NOTE | 2019-03-06 15:49 | PN ---
Date/Time of Note Date/Time of Note DATE: 03/06/19 TIME: 15:47 Assessment/Plan VTE Prophylaxis Risk score (from Ns)>0 risk: 2 SCD applied (from Ns): Yes Pharmacological prophylaxis: heparin Lines/Catheters IV [facility] Type (from [facility]): Peripheral IV Assessment/Plan Hospital Course 38 yo male with new onste DMII, DKA, and dyspepsia Dyspepsia: - S/p EGD showing esophagitis and gastritis -> PPI - Etoh cessation counsled DMII: - DKA Is resolved - Basal/bolus insulin - Insulin teaching - will add metformin at discharge Dyslipidemia: - Statin DC home tomorrow Result Diagram: 03/06/1952003/06/19520 Results 24hrs Laboratory Tests Test 03/05/19 16:36 03/05/19 18:34 03/05/19 18:48 03/05/19 19:46 Bedside Glucose 176 185 166 Sodium Level 139 Potassium Level 3.7 Chloride Level 107 Carbon Dioxide Level 20 L Anion Gap 12 Blood Urea Nitrogen 5 L Creatinine 0.68 Est Glomerular > 60 Filtrat Rate mL/min Glucose Level 189 Calcium Level 8.4 Test 03/05/19 22:00 03/06/19 05:21 03/06/19 08:28 03/06/19 09:57 Urine Opiates Screen Negative Urine Barbiturates Negative Urine Amphetamines Negative Screen Urine Negative Benzodiazepines Screen Urine Cocaine Screen Positive Urine Cannabinoids Positive White Blood Count 8.8 # Red Blood Count 4.35 L Hemoglobin 13.7 L Hematocrit 39.6 L Mean Corpuscular 91.0 Volume Mean Corpuscular 31.5 Hemoglobin Mean Corpuscular 34.6 Hemoglobin Concent Red Cell 13.2 Distribution Width Platelet Count 189 Mean Platelet Volume 10.9 H Immature 0.500 H Granulocytes % Neutrophils % 71.3 Lymphocytes % 18.8 Monocytes % 8.2 Eosinophils % 0.6 Basophils % 0.6 Nucleated Red Blood 0.0 Cells % Immature 0.040 H Granulocytes # Neutrophils # 6.3 Lymphocytes # 1.7 Monocytes # 0.7 Eosinophils # 0.1 Basophils # 0.1 Nucleated Red Blood 0.0 Cells # Sodium Level 143 Potassium Level 3.7 Chloride Level 108 Carbon Dioxide Level 21 Anion Gap 14 H Blood Urea Nitrogen 6 L Creatinine 0.71 Est Glomerular > 60 Filtrat Rate mL/min Glucose Level 199 Calcium Level 8.8 Total Bilirubin 0.9 Direct Bilirubin 0.00 Indirect Bilirubin 0.9 Aspartate Amino 25 Transf (AST/SGOT) Alanine 36 Aminotransferase (AL T/SGPT) Alkaline Phosphatase 105 Total Protein 6.3 Albumin 3.6 Globulin 2.70 Albumin/Globulin 1.33 Ratio Bedside Glucose 189 272 H Test 03/06/19 12:06 Bedside Glucose 205 Subjective 24 Hr Interval Summary Free Text/Dictation Feels well Had very lenghty discussion about DMII, dietary modificaitons Exam/Review of Systems Exam Vitals Vital Signs Date Temp Pulse Resp B/P (MAP) Pulse Ox O2 O2 Flow FiO2 Time Delivery Rate 03/06/19 97.9 72 16 141/94 96 11:21 (110) 03/06/19 Room Air 04:00 03/05/19 2.0 15:30 Intake and Output 03/05/19 03/05/19 03/06/19 1515:00 23:00 07:00 IntakeIntake Total 1000 ml 1800 ml BalanceBalance 1000 ml 1800 ml Constitutional: alert, oriented, well developed Psych: no complaints, nl mood/affect Head: normocephalic, atraumatic Eyes: nl conjunctiva, EOMI, nl lids, nl sclera, PERRL ENMT: nl external ears & nose, nl lips & teeth, nl nasal mucosa & septum Neck: supple, non-tender Respiratory: clear to auscultation, normal air movement Cardiovascular: regular rate and rhythm, nl pulses Gastrointestinal: soft, nl liver, spleen, non-tender Musculoskeletal: nl extremities to inspection, nl gait and stance Extremities: normal pulses Neurological: MANAGER EVENT II-XII intact, nl mental status, nl speech, nl strength Skin: nl turgor; No rash or lesions Lymph: nl lymph nodes Results Results 24hrs Laboratory Tests Test 03/05/19 16:36 03/05/19 18:34 03/05/19 18:48 03/05/19 19:46 Bedside Glucose 176 185 166 Sodium Level 139 Potassium Level 3.7 Chloride Level 107 Carbon Dioxide Level 20 L Anion Gap 12 Blood Urea Nitrogen 5 L Creatinine 0.68 Est Glomerular > 60 Filtrat Rate mL/min Glucose Level 189 Calcium Level 8.4 Test 03/05/19 22:00 03/06/19 05:21 03/06/19 08:28 03/06/19 09:57 Urine Opiates Screen Negative Urine Barbiturates Negative Urine Amphetamines Negative Screen Urine Negative Benzodiazepines Screen Urine Cocaine Screen Positive Urine Cannabinoids Positive White Blood Count 8.8 # Red Blood Count 4.35 L Hemoglobin 13.7 L Hematocrit 39.6 L Mean Corpuscular 91.0 Volume Mean Corpuscular 31.5 Hemoglobin Mean Corpuscular 34.6 Hemoglobin Concent Red Cell 13.2 Distribution Width Platelet Count 189 Mean Platelet Volume 10.9 H Immature 0.500 H Granulocytes % Neutrophils % 71.3 Lymphocytes % 18.8 Monocytes % 8.2 Eosinophils % 0.6 Basophils % 0.6 Nucleated Red Blood 0.0 Cells % Immature 0.040 H Granulocytes # Neutrophils # 6.3 Lymphocytes # 1.7 Monocytes # 0.7 Eosinophils # 0.1 Basophils # 0.1 Nucleated Red Blood 0.0 Cells # Sodium Level 143 Potassium Level 3.7 Chloride Level 108 Carbon Dioxide Level 21 Anion Gap 14 H Blood Urea Nitrogen 6 L Creatinine 0.71 Est Glomerular > 60 Filtrat Rate mL/min Glucose Level 199 Calcium Level 8.8 Total Bilirubin 0.9 Direct Bilirubin 0.00 Indirect Bilirubin 0.9 Aspartate Amino 25 Transf (AST/SGOT) Alanine 36 Aminotransferase (AL T/SGPT) Alkaline Phosphatase 105 Total Protein 6.3 Albumin 3.6 Globulin 2.70 Albumin/Globulin 1.33 Ratio Bedside Glucose 189 272 H Test 03/06/19 12:06 Bedside Glucose 205 Medications Medication Current Medications IV Flush (NS 3 ml) 3 ml PER PROTOCOL IV ; Start 03/05/19 at 01:00 Ondansetron HCl (Zofran Inj) 4 mg Q6H PRN IV NAUSEA/VOMITING; Start 03/05/19 at 01:00 Acetaminophen (Tylenol Tab) 650 mg Q6H PRN PO .PAIN 1-3 OR TEMP; Start 03/05/19 at 01:00 Morphine Sulfate (morphine) 2 mg Q4H PRN IV .PAIN 7-10; Start 03/05/19 at 01:00 Docusate Sodium (Colace) 100 mg Q12H PRN PO .CONSTIPATION Last administered on 03/05/19at 21:21; Admin Dose 100 MG; Start 03/05/19 at 01:00 Bisacodyl (Dulcolax) 5 mg DAILY PRN PO .CONSTIPATION; Start 03/05/19 at 01:00 Miscellaneous Information 1 ea NOTE XX ; Start 03/05/19 at 02:00 Glucose (Glutose) 15 gm Q15M PRN PO DECREASED GLUCOSE; Start 03/05/19 at 02:00 Glucose (Glutose) 22.5 gm Q15M PRN PO DECREASED GLUCOSE; Start 03/05/19 at 02:00 Dextrose (D50w Syringe) 25 ml Q15M PRN IV DECREASED GLUCOSE; Start 03/05/19 at 02:00 Dextrose (D50w Syringe) 50 ml Q15M PRN IV DECREASED GLUCOSE; Start 03/05/19 at 02:00 Glucagon (Glucagen) 1 mg Q15M PRN IM DECREASED GLUCOSE; Start 03/05/19 at 02:00 Glucose (Glutose) 15 gm Q15M PRN BUCCAL DECREASED GLUCOSE; Start 03/05/19 at 02:00 Al Hydrox/Mg Hydrox/Simethicone (Mag-Al Plus) 30 ml Q4H PRN PO GASTROINTESTINAL UPSET; Start 03/05/19 at 06:30 Pantoprazole (Protonix Iv) 40 mg BID IV Last administered on 03/06/19at 08:33; Admin Dose 40 MG; Start 03/05/19 at 21:00 Metoclopramide HCl (Reglan) 10 mg Q6 IV Last administered on 03/06/19 05:53; Admin Dose 10 MG; Start 03/05/19 at 18:00 Insulin Aspart (Novolog Insulin Pen) (Adult SC Insulin - Mild Algorithm)... AC MEALS AND BEDTIME SC Last administered on 03/06/19 12:22; Admin Dose 2 UNIT; Start 03/05/19 at 21:00 Insulin Glargine (Lantus) 14 units DAILY@0800 SC Last administered on 03/06/19 12:22; Admin Dose 14 UNITS; Start 03/06/19 at 11:30 Insulin Aspart (Novolog Insulin Pen) 5 unit WITH MEALS SC Last administered on 03/06/19 12:22; Admin Dose 5 UNIT; Start 03/06/19 at 11:50 Sucralfate (Carafate Susp) 1 gm QID PO Last administered on 03/06/19 12:07; Admin Dose 1 GM; Start 03/06/19 at 13:00 BHAKTI TAM MD Mar 06, 2019 15:49
[2019-03-06 16:08] VITALS: BP 134/104; RESP 18
[2019-03-06 19:20] VITALS: BP 139/91; PULSE 81; RESP 18
[2019-03-06] MEDS: DOCUSATE SODIUM 100 MG CAP PO PRN (20:11)
[2019-03-06] MEDS ORDERED: PRAMOXINE/HC 10 GM RECT FOAM PR ONE (22:00)
[2019-03-06] MEDS ORDERED: PRAMOXINE 1% 15 GM RECT FOAM PR PRN (23:00)
[2019-03-07 02:36] VITALS: BP 115/73; PULSE 59; RESP 19
[2019-03-07] MEDS: METOCLOPRAMIDE 10 MG INJ IV SCH ×2 (06:27→12:34)
[2019-03-07] MEDS: PANTOPRAZOLE 40 MG INJ IV SCH (08:11)
[2019-03-07] MEDS: INSULIN GLARGINE [LANTus] (100 UNITS/ML) SYG SC SCH (08:12)
[2019-03-07] MEDS: Insulin NOVOLOG SS MILD Algorithm (SS with meals and bedtime) SC SCH ×2 (08:13→12:33)
[2019-03-07] MEDS: INSULIN ASPART [NOVOLOG] 3 ML PEN SC SCH ×2 (08:13→12:34)
[2019-03-07] MEDS: SUCRALFATE (100 MG/ML) 10ML CUP PO SCH ×2 (08:16→12:34)
[2019-03-07] MEDS: DOCUSATE SODIUM 100 MG CAP PO PRN (08:24)
--- NOTE | 2019-03-07 09:43 | PN ---
Date/Time of Note Date/Time of Note DATE: 03/07/19 TIME: 09:39 Assessment/Plan VTE Prophylaxis Risk score (from Nsg)>0 risk: 2 SCD applied (from Nsg): Yes Pharmacological prophylaxis: other (scds) Lines/Catheters IV Catheter Type (from Nrsg): Peripheral IV Assessment/Plan Hospital Course Summary Assessment and Plan: Assessment: Epigastric pain/N/v- with questionable hematemesis -2/2 to DKA vs gastritis vs PUD vs Rosa-Rayo vs other EGD 03/05/19 Severe ulcerative esophagitis. Small hiatal hernia. Moderate gastritis. Linear duodenal ulcerations with no stigmata. Otherwise normal EGD A-Gastric body and antrum biopsy: -- Antral and body mucosa showing no significant histopathological abnormalities. -- There is no evidence of malignancy. B-Distal esophagus biopsy: -- Squamous esophageal mucosa showing scattered intraepithelial neutrophils, compatible with very mild acute esophagitis. -- No fungal organisms are identified in an Alcian blue/PAS stain (positive control concurrently reviewed). -- There is no evidence of malignancy. Newly diagnosed DM DKA HTN- not treated Dyslipidemia- not treated Hepatic steatosis Excessive alcohol use-discussed importance of cessation History of recent cocaine use Plan: PPI BID/Carafate 1 gm po QID x4 weeks Diet as tolerated Pt to f/u with GI after d/c- for further work-up regarding hepatic steatosis/esophagitis/gastritis Pt stable for out-pt management from GI point of view GI will sign off but be available upon reconsult as needed Patient seen in collaboration with Dr. Sheehan Subjective: Course reviewed with nursing staff Patient interviewed and examined All labs, imaging and other results reviewed Tolerating diet well Reviewed pathology with patient understanding verbalized. No c/o n/v- pt does c/o some constipation will add miraLAX PHYSICAL EXAMINATION: GENERAL: Alert & oriented x 3, in no acute distress SKIN: No lesions. HEAD: Normocephalic, atraumatic, no tenderness. EYES: Pupils equal reactive to light, non-icteric, no discharge. EARS/NOSE AND THROAT: Ears normal, nose normal. NECK: Supple, no masses. CHEST: Inspection within normal limits. CARDIOVASCULAR: Heart: Regular rate and rhythm RESPIRATORY: Lungs clear to auscultation GASTROINTESTINAL AND LIVER: Abdomen: Soft, epigastric tenderness- improved, non- distended, no ascites, no guarding, no rebound tenderness, normoactive bowel sounds. Rectal: Deferred. GENITOURINARY: Male genitalia within normal limits. EXTREMITIES: No cyanosis, clubbing or edema. Result Diagram: 03/07/19 0444 03/07/19 0444 Results 24hrs Laboratory Tests Test 03/06/19 09:57 03/06/19 12:06 03/06/19 17:16 03/06/19 20:08 Bedside Glucose 272 H 205 184 194 Test 03/07/19 02:14 03/07/19 04:44 03/07/19 07:48 Bedside Glucose 161 203 White Blood Count 8.2 Red Blood Count 4.71 Hemoglobin 14.6 Hematocrit 41.3 L Mean Corpuscular 87.7 Volume Mean Corpuscular 31.0 Hemoglobin Mean Corpuscular 35.4 Hemoglobin Concent Red Cell 13.1 Distribution Width Platelet Count 203 Mean Platelet Volume 10.6 H Immature 0.700 H Granulocytes % Neutrophils % 59.4 Lymphocytes % 27.1 Monocytes % 11.5 H Eosinophils % 0.7 Basophils % 0.6 Nucleated Red Blood 0.0 Cells % Immature 0.060 H Granulocytes # Neutrophils # 4.9 Lymphocytes # 2.2 Monocytes # 0.9 Eosinophils # 0.1 Basophils # 0.1 Nucleated Red Blood 0.0 Cells # Sodium Level 143 Potassium Level 3.8 Chloride Level 106 Carbon Dioxide Level 28 Anion Gap 9 # Blood Urea Nitrogen 7 Creatinine 0.75 Est Glomerular > 60 Filtrat Rate mL/min Glucose Level 206 Calcium Level 9.1 Total Bilirubin 0.9 Direct Bilirubin 0.00 Indirect Bilirubin 0.9 Aspartate Amino 26 Transf (AST/SGOT) Alanine 32 Aminotransferase (AL T/SGPT) Alkaline Phosphatase 110 Total Protein 7.0 Albumin 4.0 Globulin 3.00 Albumin/Globulin 1.33 Ratio Exam/Review of Systems Exam Vitals Vital Signs Date Temp Pulse Resp B/P (MAP) Pulse Ox O2 O2 Flow FiO2 Time Delivery Rate 03/07/19 97.7 59 19 115/73 94 02:36 (87) 03/06/19 Room Air 04:00 03/05/19 2.0 15:30 Intake and Output 03/06/19 03/06/19 03/07/19 1515:00 23:00 07:00 IntakeIntake Total 990 ml 500 ml BalanceBalance 990 ml 500 ml Results Results 24hrs Laboratory Tests Test 03/06/19 09:57 03/06/19 12:06 03/06/19 17:16 03/06/19 20:08 Bedside Glucose 272 H 205 184 194 Test 03/07/19 02:14 03/07/19 04:44 03/07/19 07:48 Bedside Glucose 161 203 White Blood Count 8.2 Red Blood Count 4.71 Hemoglobin 14.6 Hematocrit 41.3 L Mean Corpuscular 87.7 Volume Mean Corpuscular 31.0 Hemoglobin Mean Corpuscular 35.4 Hemoglobin Concent Red Cell 13.1 Distribution Width Platelet Count 203 Mean Platelet Volume 10.6 H Immature 0.700 H Granulocytes % Neutrophils % 59.4 Lymphocytes % 27.1 Monocytes % 11.5 H Eosinophils % 0.7 Basophils % 0.6 Nucleated Red Blood 0.0 Cells % Immature 0.060 H Granulocytes # Neutrophils # 4.9 Lymphocytes # 2.2 Monocytes # 0.9 Eosinophils # 0.1 Basophils # 0.1 Nucleated Red Blood 0.0 Cells # Sodium Level 143 Potassium Level 3.8 Chloride Level 106 Carbon Dioxide Level 28 Anion Gap 9 # Blood Urea Nitrogen 7 Creatinine 0.75 Est Glomerular > 60 Filtrat Rate mL/min Glucose Level 206 Calcium Level 9.1 Total Bilirubin 0.9 Direct Bilirubin 0.00 Indirect Bilirubin 0.9 Aspartate Amino 26 Transf (AST/SGOT) Alanine 32 Aminotransferase (AL T/SGPT) Alkaline Phosphatase 110 Total Protein 7.0 Albumin 4.0 Globulin 3.00 Albumin/Globulin 1.33 Ratio Medications Medication Current Medications IV Flush (NS 3 ml) 3 ml PER PROTOCOL IV ; Start 03/05/19 at 01:00 Ondansetron HCl (Zofran Inj) 4 mg Q6H PRN IV NAUSEA/VOMITING; Start 03/05/19 at 01:00 Acetaminophen (Tylenol Tab) 650 mg Q6H PRN PO .PAIN 1-3 OR TEMP; Start 03/05/19 at 01:00 Morphine Sulfate (morphine) 2 mg Q4H PRN IV .PAIN 7-10; Start 03/05/19 at 01:00 Docusate Sodium (Colace) 100 mg Q12H PRN PO .CONSTIPATION Last administered on 03/07/19at 08:24; Admin Dose 100 MG; Start 03/05/19 at 01:00 Bisacodyl (Dulcolax) 5 mg DAILY PRN PO .CONSTIPATION Last administered on 03/07/19 08:24; Admin Dose 5 MG; Start 03/05/19 at 01:00 Miscellaneous Information 1 ea NOTE XX ; Start 03/05/19 at 02:00 Glucose (Glutose) 15 gm Q15M PRN PO DECREASED GLUCOSE; Start 03/05/19 at 02:00 Glucose (Glutose) 22.5 gm Q15M PRN PO DECREASED GLUCOSE; Start 03/05/19 at 02:00 Dextrose (D50w Syringe) 25 ml Q15M PRN IV DECREASED GLUCOSE; Start 03/05/19 at 02:00 Dextrose (D50w Syringe) 50 ml Q15M PRN IV DECREASED GLUCOSE; Start 03/05/19 at 02:00 Glucagon (Glucagen) 1 mg Q15M PRN IM DECREASED GLUCOSE; Start 03/05/19 at 02:00 Glucose (Glutose) 15 gm Q15M PRN BUCCAL DECREASED GLUCOSE; Start 03/05/19 at 0 2:00 Al Hydrox/Mg Hydrox/Simethicone (Mag-Al Plus) 30 ml Q4H PRN PO GASTROINTESTINAL UPSET Last administered on 03/07/19 08:24; Admin Dose 30 ML; Start 03/05/19 at 06:30 Pantoprazole (Protonix Iv) 40 mg BID IV Last administered on 03/07/19 08:11; Admin Dose 40 MG; Start 03/05/19 at 21:00 Metoclopramide HCl (Reglan) 10 mg Q6 IV Last administered on 03/07/19 06:27; Admin Dose 10 MG; Start 03/05/19 at 18:00 Insulin Aspart (Novolog Insulin Pen) (Adult SC Insulin - Mild Algorithm)... AC MEALS AND BEDTIME SC Last administered on 03/07/19 08:13; Admin Dose 2 UNIT; Start 03/05/19 at 21:00 Insulin Glargine (Lantus) 14 units DAILY@0800 SC Last administered on 03/07/19 08:12; Admin Dose 14 UNITS; Start 03/06/19 at 11:30 Insulin Aspart (Novolog Insulin Pen) 5 unit WITH MEALS SC Last administered on 03/07/19at 08:13; Admin Dose 5 UNIT; Start 03/06/19 at 11:50 Sucralfate (Carafate Susp) 1 gm QID PO Last administered on 03/07/19at 08:16; Admin Dose 1 GM; Start 03/06/19 at 13:00 Pramoxine HCl (Proctofoam 1%) 1 applic TID PRN IN HEMORROID PAIN/ITCHING Last administered on 03/07/19at 07:50; Admin Dose 1 APPLIC; Start 03/06/19 at 23:00 SHARLA MARY Mar 07, 2019 09:43
[2019-03-07] MEDS ORDERED: POLYETHYLENE GLYCOL 17 GM PACKET PO SCH (10:00)
[2019-03-07] MEDS ORDERED: PANT20TA3 PO (12:19)
[2019-03-07] MEDS ORDERED: MTF1000T PO (12:19)
[2019-03-07] MEDS ORDERED: SYRI-1417 MC (12:19)
[2019-03-07] MEDS ORDERED: SIMV40TA3 PO (12:19)
[2019-03-07] MEDS ORDERED: LANT3I SC (12:19)
--- NOTE | 2019-03-07 12:20 | PDOCDIS ---
Discharge Instructions DIAGNOSIS Discharge Diagnosis Diabetes CONDITION [id number] Patient Condition: [id number] Stable FOLLOW UP/APPOINTMENTS Follow-up Plan Make an appointment to see your doctor in the next few weeks Take your medications including insulin as prescribed It is very important to stop drinking alcohol. Eat no sugar and a diet low in carbohydrates Exercise daily Return to the hospital if you have any concerning symtpoms BHAKTI TAM MD Mar 07, 2019 12:20
[2019-03-07] MEDS ORDERED: CLOTRIMAZOLE 1% 30 GM CR TOP ONE (13:00)
[2019-03-07 14:06] VITALS: BP 140/94; PULSE 76; RESP 18
--- NOTE | 2019-03-07 15:39 | DS ---
Date/Time of Note Date/Time of Note DATE: 03/07/19 TIME: 15:37 Discharge Summary Admission/Discharge Info Admit Date/Time Mar 05, 2019 at 00:40 Discharge Date/Time Mar 07, 2019 at 14:45 Discharge Diagnosis Diabetes Patient Condition: Stable Hospital Course 38 yo male with new onste DMII, DKA, etoh use disorder and dyspepsia Dyspepsia with complaint of hematemasis: - He underwent EGD showing esophagitis and gastritis. He was prescribed a PPI - Etoh cessation counsled - H/H remained stable DMII: - Mild ketonuria with AG was present at admission suggestive of DKA (though possible this was from alcohol as well). Regardelss, he was given insulin and fliuds and this resolved. - This is a new diagnosis of diabetes. He was e xtensively counseled on lifestyle management for diabetes - given phenotype I belive this is type II DM. I prescribed lantus and metfomrin to him. He will follow up with his primary doctro Dyslipidemia: - Statin was prescribed at discharge Etoh use d/o: - He was counseled on etoh cessation and provided community resources Home Meds Active Scripts Syring W-Ndl,Disp,Insul,0.5 ml (Easy Comfort Insulin Syringe) 1 Each Disp.syrin, EACH MC DAILY, #1 5 Refills Prov:BHAKTI TAM MD 03/07/19 Pantoprazole* (Pantoprazole*) 20 Mg Tablet.dr, 20 MG PO DAILY for 60 Days, #60 TAB Prov:BHAKTI TAM MD 03/07/19 Simvastatin (Simvastatin) 40 Mg Tablet, 40 MG PO DAILY for 60 Days, #60 TAB 4 Refills Prov:BHAKTI TAM MD 03/07/19 Metformin* (Glucophage*) 1,000 Mg Tablet, 1000 MG PO BID for 120 Days, #60 TAB 5 Refills Prov:BHAKTI TAM MD 03/07/19 Insulin Glargine* (Lantus*) 100 Unit/Ml Soln, 20 UNIT SC QHS for 30 Days, #1 VIAL 5 Refills Prov:BHAKTI TAM MD 03/07/19 Discontinued Reported Medications Tramadol HCl (Tramadol HCl) 50 Mg Tab, 50 MG PO PRN PRN for PAIN, TAB 04/07/14 Follow-up Plan Make an appointment to see your doctor in the next few weeks Take your medications including insulin as prescribed It is very important to stop drinking alcohol. Eat no sugar and a diet low in carbohydrates Exercise daily Return to the hospital if you have any concerning symtpoms Primary Care Provider Alli Lucas MD Pending Labs Laboratory Tests Test 03/06/19 17:16 03/06/19 20:08 03/07/19 02:14 03/07/19 04:44 Bedside 184 194 161 Glucose mg/dL (70-220) mg/dL (70-220) mg/dL (70-220) White Blood 8.2 Count 10^3/ul (4.8-1 0.8) Red Blood 4.71 Count 10^6/ul (4.70- 6.10) Hemoglobin 14.6 g/dl (14.0-18. 0) Hematocrit 41.3 % (42.0-52.0) Mean 87.7 Corpuscular fl (82.0-101.0 Volume ) Mean 31.0 Corpuscular pg (29.0-33.0) Hemoglobin Mean 35.4 Corpuscular g/dl (32.0-37. Hemoglobin Conc 0) ent Red Cell 13.1 Distribution % (11.5-14.5) Width Platelet Count 203 10^3/UL (140-4 15) Mean Platelet 10.6 Volume fl (7.4-10.4) Immature 0.700 Granulocytes % % (0.001-0.429 ) Neutrophils % 59.4 % (39.0-77.0) Lymphocytes % 27.1 % (15.0-51.0) Monocytes % 11.5 % (0.0-11.0) Eosinophils % 0.7 % (0.0-7.0) Basophils % 0.6 % (0.0-2.0) Nucleated Red 0.0 Blood Cells % /100WBC (0.0-0 .0) Immature 0.060 Granulocytes # 10^3/ul (0.0-0 .031) Neutrophils # 4.9 10^3/ul (1.6-7 .5) Lymphocytes # 2.2 10^3/ul (0.8-2 .9) Monocytes # 0.9 10^3/ul (0.3-0 .9) Eosinophils # 0.1 10^3/ul (0.0-0 .5) Basophils # 0.1 10^3/ul (0.0-0 .1) Nucleated Red 0.0 Blood Cells # 10^3/ul (0.0-0 .0) Sodium Level 143 mmol/L (135-14 4) Potassium 3.8 Level mmol/L (3.5-5. 1) Chloride Level 106 mmol/L (97-110 ) Carbon Dioxide 28 Level mmol/L (21-31) Anion Gap 9 (5-13) Blood Urea 7 mg/dl (7-20) Nitrogen Creatinine 0.75 mg/dl (0.61-1. 24) Est Glomerular > 60 Filtrat mL/min (>60) Rate mL/min Glucose Level 206 mg/dl (70-220) Calcium Level 9.1 mg/dl (8.4-10. 2) Total 0.9 Bilirubin mg/dl (0.2-1.3 ) Direct 0.00 Bilirubin mg/dl (0.00-0. 20) Indirect 0.9 Bilirubin mg/dl (0-1.1) Aspartate Amino 26 Transf (AST/SGO IU/L (15-46) T) Alanine 32 Aminotransferas IU/L (13-69) e (ALT/SGPT) Alkaline 110 Phosphatase IU/L (42-121) Total Protein 7.0 g/dl (6.1-8.1) Albumin 4.0 g/dl (3.3-4.9) Globulin 3.00 g/dl (1.3-3.2) Albumin/Globuli 1.33 n Ratio Test 03/07/19 07:48 03/07/19 12:25 Bedside 203 158 Glucose mg/dL (70-220) mg/dL (70-220) BHAKTI TAM MD Mar 07, 2019 15:39
== END 2019-03-07 14:45 | disposition home or self-care (01) | DRG 638 ==
LOC: E/R 21:06 → TEL 03-05 00:40 → 5EC 03-05 18:14
PROVIDERS: ADMIT Family Medicine; ATTEND Internal Medicine
PROC: 0DB68ZX Excision of Stomach, Via Natural or Artificial Opening Endoscopic, Diagnostic (ICD-10-PCS; 2019-03-05)
PROC: 0DB58ZX Excision of Esophagus, Via Natural or Artificial Opening Endoscopic, Diagnostic (ICD-10-PCS; principal; 2019-03-05 20:30)
DX: E11.10 Type 2 diabetes mellitus with ketoacidosis without coma (principal); K22.10 Ulcer of esophagus without bleeding; K76.0 Fatty (change of) liver, not elsewhere classified; K26.9 Duodenal ulcer, unspecified as acute or chronic, without hemorrhage or perforation; K29.70 Gastritis, unspecified, without bleeding; N47.6 Balanoposthitis; I10 Essential (primary) hypertension; E78.5 Hyperlipidemia, unspecified; F10.10 Alcohol abuse, uncomplicated; Y90.0 Blood alcohol level of less than 20 mg/100 ml; K44.9 Diaphragmatic hernia without obstruction or gangrene; Z79.4 Long term (current) use of insulin; Z98.1 Arthrodesis status
CPT/HCPCS: 36415; 71045; 76705; 80048; 80053; 80061; 80076; 80307; 81003; 82306; 82550; 82553; 82803; 82962; 83036; 83690; 83735; 84443; 84484; 85025; 86337; 88305; 88313; 93005; 96374; 96375; C9113; J1815; J2060; J2270; J2405; J2765; J3411; J7030; J7120

== ENCOUNTER 2019-05-09 06:51 | Emergency (ER) | payer OTHER ==
[~2019-05-09] VITALS: Ht 167.6 cm; Wt 92.8 kg
[~2019-05-09 06:51] MED LIST changes: +ACET500C5 PO; +LANT3I SC; +MTF1000T PO; +PANT20TA3 PO; +SIMV40TA3 PO; +SYRI-1417 MC; -TRAM50TA2 PO
[2019-05-09 06:54] VITALS: BP 145/83; PULSE 69; RESP 18; Ht 167.6 cm; Wt 92.8 kg
[2019-05-09] MEDS ORDERED: ONDANSETRON 4 MG INJ IV STA (07:22)
[2019-05-09] MEDS ORDERED: ACETAMINOPHEN 325 MG TAB PO ONE (07:30)
[2019-05-09] MEDS ORDERED: SOD CHLORIDE 0.9% 500 ML IV ONE (07:30)
== END 2019-05-09 08:40 | disposition home or self-care (01) ==
LOC: FTE 06:51
DX: M54.5 Low back pain (principal); I10 Essential (primary) hypertension; E11.9 Type 2 diabetes mellitus without complications; Z79.4 Long term (current) use of insulin; Z87.891 Personal history of nicotine dependence
CPT/HCPCS: 76775; 80053; 81003; 85025; 96361; 96374; J2405; J7040; Z7502; Z7610